=== PATIENT | female | born 2000 | race Two or more races ===

== ENCOUNTER → 2020-02-26 | Outpatient (CLI) | payer BC ==
--- NOTE | 2020-02-26 14:52 | KCIC ---
STUDY: MRI of the right knee without contrast INDICATION: Persistent knee pain. COMPARISON: 02/18/2020 radiographs. TECHNIQUE: Multiplanar MR imaging of the right knee performed without the use of intravenous or intra-articular contrast. FINDINGS: Menisci: Intact. Cruciate ligaments: The PCL is intact. The ACL is intact but expanded by an intracruciate ganglion measuring approximately 0.7 cm transverse by 2.1 cm AP by 1.2 cm craniocaudal. Collateral ligaments: Intact. Tendons: Intact. Cartilage: Patellofemoral: Intact. Lateral compartment: Intact. Medial compartment: Intact. Bones: Unremarkable. Miscellaneous: Normal volume knee joint fluid. Trace amount of fluid within the deep infrapatellar bursa. The fat pads of the knee are within normal limits. Normal TT-TG distance. IMPRESSION: The ACL is intact but expanded by a prominent intracruciate ganglion. No noteworthy finding elsewhere throughout the knee. Electronically signed by: JOSE NELSON MD (02/26/2020 2:49 PM) [id number]
== END | disposition home or self-care (01) ==
LOC: KCIC MRI 13:27
PROVIDERS: ATTEND Orthopaedic Surgery
DX: M25.561 Pain in right knee (principal)
CPT/HCPCS: 73721

== ENCOUNTER → 2020-04-19 | Outpatient (CLI) | payer BC | LOC: LAB 14:01 | PROVIDERS: ATTEND Orthopaedic Surgery | DX: Z01.812 Encounter for preprocedural laboratory examination (principal); M67.461 Ganglion, right knee; Z20.828 Contact with and (suspected) exposure to other viral communicable diseases | CPT/HCPCS: U0003 ==

== ENCOUNTER 2020-04-22 11:34 | Day surgery (SDC) | payer BC ==
[~2020-04-22] VITALS: Ht 160 cm; Wt 81.2 kg
[~2020-04-22 11:34] MED LIST: HYDROmorphone 2 MG/ML VIAL IV PRN; IV RINGERS,LACTATED 1000ML 1,000 ML IV SCH; MORPHINE SULFATE 2 MG/ML VIAL. IV PRN; ONDANSETRON PF 4 MG/2 ML VIAL. IV PRN; PROCHLORPERAZINE 10 MG/2 ML VIAL. IV PRN; fentaNYL PF VIAL 100 MCG/2 ML VIAL IV PRN
[2020-04-22] MEDS ORDERED: fentaNYL PF VIAL 100 MCG/2 ML VIAL ONE (11:56)
[2020-04-22] MEDS ORDERED: SEVOFLURANE 61 TO 120 MINUTES. IH ONE (11:56)
[2020-04-22] MEDS ORDERED: MIDAZOLAM HCL/PF 2 MG/2 ML VIAL. ONE (11:57)
[2020-04-22] MEDS ORDERED: PROPOFOL 10 MG/ML (20ML) VIAL. IV ONE (11:57)
[2020-04-22] MEDS ORDERED: ONDANSETRON PF 4 MG/2 ML VIAL. ONE (11:57)
[2020-04-22] MEDS ORDERED: LIDOCAINE 2% PF 5 ML VIAL. ONE (11:57)
[2020-04-22] MEDS ORDERED: DEXAMETHASONE SOD PHOS 4 MG/ML VIAL ONE (11:57)
[2020-04-22] MEDS ORDERED: BUPIVACAINE-EPI 0.25%-1:200000 MPF 30 ML VIAL. INJ ONE ×3 (12:00)
[2020-04-22] MEDS ORDERED: EPINEPHrine VIAL 30 MG/30 ML VIAL ONE (12:34)
--- NOTE | 2020-04-22 14:05 | PDOC4 ---
Operative Note Operative Note Date of Procedure: April 22, 2020 Preoperative Diagnosis: Ganglion, right knee - M67.461 Postoperative Diagnosis: Ganglion, right knee - M67.461 Procedures Performed: right knee arthroscopy, surgical synovectomy limited (arthroscopic ganglion excision) CPT 63141 Surgeon: Yessy Castillo MD Anesthesia: General Estimated Blood Loss: 10 mL Specimens: none Drains: none Complications: none Tourniquet time: approximately 15 minutes at 300 mm Hg Indications for Procedure: The patient is a 19-year-old with right knee pain, unrelieved with nonoperative treatment. Exam and MRI are consistent with an intra-articular ganglion emanating from the anterior cruciate ligament. We talked about the risks and benefits of proceeding with an arthroscopic procedure. We talked about potential risks of ongoing pain, progressive arthritis, bleeding, infection, blood clots, or other potential surgical or anesthetic complications. All of the patient's questions about surgery were answered and she desired to proceed. Written consent was obtained. Description of Operation: The patient was identified in the preoperative holding area. The correct right knee was marked by me. The patient was taken to the operating room, where a general anesthetic was used. Preoperative antibiotics were given intravenously. A time-out procedure was performed. A tourniquet was placed on the upper thigh. Local anesthetic 20 mL of 0.25% bupivacaine was injected using sterile technique into the knee joint. The limb was prepared circumferentially with ChloraPrep solution and sterile waterproof arthroscopy drapes were applied. The limb was exsanguinated with an Esmarch bandage and the tourniquet was inflated. Lateral and medial arthroscopy portals were established. The medial meniscus was normal and stable to probing.The medial tibiofemoral joint showed normal articu lar surfaces so no chondroplasty was required.The intercondylar notch was free of loose bodies, and the ACL was intact although appears slightly degenerative, consistent with remote sprain without any complete tear. The lateral tibiofemoral joint showed a normal lateral meniscus, so no lateral meniscectomy was required.The lateral articular surfaces showed normal articular surfaces so no chondroplasty was required. The patellofemoral joint showed normal articular surfaces so no chondroplasty was required. I retracted the anterior cruciate ligament with a probe, and was able to visualize the intra-articular ganglion behind the ACL. Arthroscopic photos were taken of the edge of the ganglion. I placed the shaver into the ganglion, and this collapsed quickly, like a hot air balloon collapsing. The ganglion was a completely excised with the shaver. I placed the shaver and the arthroscope alternately in the medial and lateral portals for good access to the posterior compartment and took nice photos in the posterior compartment of the posterior portion of the medial meniscus. There was not enough of a ganglion remnant tissue to send for specimen. It had a very thin shell which completely collapsed and was removed with the shaver. The suprapatellar pouch, medial and lateral gutters were free of loose bodies. Copious irrigation was used to drain all meniscal and chondral fragments, and the knee was drained of fluid. The portals were closed with 3-0 Prolene interuppted sutures. Additional local anesthetic, 30 mL of 0.25% bupivacaine with epinephrine was injected. A bulky sterile dressing was applied and the tourniquet was released. Needle and sponge counts were correct and there were no apparent complications. YESSY CASTILLO MD Apr 22, 2020 14:05
[2020-04-22] MEDS ORDERED: ASPI325T8 PO (14:06)
[2020-04-22] MEDS ORDERED: HYDROcodone/APAP 5/325MG 1 TAB TABLET PO ONE (14:15)
[2020-04-22] MEDS ORDERED: PROCHLORPERAZINE 10 MG/2 ML VIAL. ONE (14:41)
== END 2020-04-22 15:16 | disposition home or self-care (01) ==
LOC: SURG 11:34
PROVIDERS: ATTEND Orthopaedic Surgery
DX: M67.461 Ganglion, right knee (principal); E66.9 Obesity, unspecified; Z79.899 Other long term (current) drug therapy; Z68.31 Body mass index [BMI] 31.0-31.9, adult; Z79.82 Long term (current) use of aspirin
CPT/HCPCS: 29875; 81025; 97116; A7015; J0171; J0690; J0780; J1100; J2250; J2405; J2704; J3010; J3490; J7120